=== PATIENT | female | born 1955 | race Caucasian/White ===

== ENCOUNTER → 2016-07-29 | Outpatient (CLI) | payer BC | LOC: MC.RAD 09:20 | DX: Z12.31 Encounter for screening mammogram for malignant neoplasm of breast (principal) ==

== ENCOUNTER → 2020-01-10 | Outpatient (CLI) | payer BC | LOC: MC.RAD 16:40 | DX: Z12.31 Encounter for screening mammogram for malignant neoplasm of breast (principal) ==

== ENCOUNTER 2020-11-16 20:06 | Emergency (ER) | payer MEDICARE ==
[~2020-11-16] VITALS: Ht 165.1 cm; Wt 68.2 kg
[2020-11-16] MEDS ORDERED: NORCO 325 MG-51 TAB PO (21:02)
[2020-11-16 23:25] VITALS: BP 121/69; PULSE 68; TEMP 97.7
== END 2020-11-16 21:30 | disposition home or self-care (01) ==
LOC: COL.ER 20:06
DX: S52.501A Unspecified fracture of the lower end of right radius, initial encounter for closed fracture (principal); V18.4XXA Pedal cycle driver injured in noncollision transport accident in traffic accident, initial encounter
CPT/HCPCS: 1647; A4565

== ENCOUNTER → 2023-03-02 | Outpatient (CLI) | payer MEDICARE ==
[~2023-03-02] MED LIST: NORCO 325 MG-51 TAB PO
== END ==
LOC: CANSCHCLI → MC.RAD 01-31 09:30
DX: Z12.31 Encounter for screening mammogram for malignant neoplasm of breast (principal)